=== PATIENT | female | born 1970 | race Caucasian/White ===

== ENCOUNTER 2020-05-07 02:16 | Outpatient (CLI) | payer OTHER, SELFPAY ==
[2020-05-07 17:02] LABS: SARS-CoV-2 RNA PCR Negative
== END 2020-05-07 02:17 | disposition home or self-care (01) ==
LOC: ANHCOVIDDT 02:16
PROVIDERS: PCP Internal Medicine; Visit Provider Internal Medicine Gastroenterology
DX: Z01.812 Encounter for preprocedural laboratory examination (principal); Z20.828 Contact with and (suspected) exposure to other viral communicable diseases
CPT/HCPCS: 87635; C9803; U0003

== ENCOUNTER 2020-05-09 00:18 | Day surgery (SDC) | payer OTHER, SELFPAY ==
[2020-05-01 13:22] VITALS: BMI 23.4
--- NOTE | 2020-05-09 09:43 | P.PNAN_ITS ---
Anes - Initial Pre Proc Eval Procedure: Operation Date: 05/09/20 10:00 Proposed Procedures p Esophagogastroduodenoscopy - Pedro Nagel MD Date/Time: 05/09/20 09:43 Surgeon: Pedro Nagel MD Pre Op Diagnosis: GERD Patient Data Age: 49 Gender: F Height: 1.75 m Weight: 72 kg Allergies Allergy/AdvReac Type Severity Reaction Status Date / Time No Known Allergies Allergy Mild Unverified 05/31/09 08:31 BEE STINGS Allergy Unknown Hives Uncoded 05/01/20 13:38 / PAIN PILL? AdvReac Unknown ITCHING Uncoded 05/01/20 13:38 Home Medications Medication Instructions Recorded Confirmed Type Chlorophyll Veg 1 cap PO DAILY 05/01/20 05/01/20 History Co Q-10 120 mg PO DAILY 05/01/20 05/01/20 History L-Tyrosine 500 mg PO DAILY 05/01/20 05/01/20 History Living Calcium Adv. 1 cap PO DAILY 05/01/20 05/01/20 History ascorbic acid (vitamin C) [Vitamin 500 mg PO DAILY 05/01/20 05/01/20 History C] biotin 10,000 mcg PO DAILY 05/01/20 05/01/20 History cholecalciferol (vitamin D3) 2,000 mcg PO DAILY 05/01/20 05/01/20 History [Vitamin D3] clonazepam 0.5 mg PO DAILY PRN 05/01/20 05/09/20 History cyanocobalamin (vitamin B-12) 1,000 mcg PO DAILY 05/01/20 05/01/20 History [Vitamin B-12] duloxetine 60 mg PO DAILY 05/01/20 05/01/20 History elderberry fruit-honey 1 cap PO DAILY 05/01/20 05/01/20 History loratadine [Claritin] 20 mg PO DAILY 05/01/20 05/01/20 History magnesium oxide 500 mg PO DAILY 05/01/20 05/01/20 History vdalvmmy-aru-NZ-lycopen-lutein 1 tablet PO DAILY 05/01/20 05/01/20 History [Biocel (with Lutein)] omeprazole 20 mg PO BID 05/01/20 05/01/20 History Patient hx anesthesia problems: none Family hx anesthesia problems: none PMFSH Past Medical History Medical History (Updated 05/09/20 @ 09:44 by Kofi Mota MD) Anxiety Gastroesophageal reflux disease Hemorrhoids Social History Social History Smoking status: Never smoker Alcohol intake: current Substance use: never Substance use type: does not use Spiritual care concerns: No Anes - Eval Final PreProcedure Day of Procedure 05/09/20 09:43 Patient weight: overweight Heart: regular rate and rhythm Lungs: clear to auscultation and normal air movement Airway: Mallampati scale class II Neurological: alert and oriented Last oral intake: >/= 8 hours ASA classification: II Emergent: no Anesthetic plan: proceed Anesthesia type and monitoring: general GIVS Informed Consent: The patient's anesthetic plan and its attendant risks and benefits were discussed with the patient/family/POA. Questions were solicited a nd answers provided to the satisfaction of the patient/family/POA.
[2020-05-09 10:05] VITALS: BP 141/84; PULSE 90; RESP 17; TEMP 36.8; O2SAT 100
[2020-05-09] MEDS: LACTATED RINGERS 1,000 ML 150 ML IV CONT (10:17)
--- NOTE | 2020-05-09 11:30 | PM.HPGS ---
History of Present Illness History of Present Illness Consent: Risks, benefits, and alternatives have been discussed and questions answered. Patient agrees to proceed with procedure. Chief complaint: GERD Narrative: Arlette Simmons is a 49 year old W female referred for gastroscopy for evaluation of constant nausea history of indigestion heartburn no dysphagia or odynophagia. No hematemesis. No melena. No prior history of peptic ulcer disease. Patient was seen for this 3 years ago underwent a EGD performed by myself. This revealed a small hiatal hernia mild distal esophagitis. BEL test was negative. She has been on PPI most recently Prevacid taking it twice a day without significant improvement. No new medications. Patient did have a colonoscopy 10 years ago which was normal. I did recommend she schedule another colonoscopy. He had PMFSH Past Medical History Medical History Anxiety Gastroesophageal reflux disease Hemorrhoids Social History Social History Smoking status: Never smoker Alcohol intake: current Substance use: never Substance use type: does not use Spiritual care concerns: No Meds Home Medications and Allergies Home Medications Medication Instructions Recorded Confirmed Type Chlorophyll Veg 1 cap PO DAILY 05/01/20 05/01/20 History Co Q-10 120 mg PO DAILY 05/01/20 05/01/20 History L-Tyrosine 500 mg PO DAILY 05/01/20 05/01/20 History Living Calcium Adv. 1 cap PO DAILY 05/01/20 05/01/20 History ascorbic acid (vitamin C) [Vitamin 500 mg PO DAILY 05/01/20 05/01/20 History C] biotin 10,000 mcg PO DAILY 05/01/20 05/01/20 History cholecalciferol (vitamin D3) 2,000 mcg PO DAILY 05/01/20 05/01/20 History [Vitamin D3] clonazepam 0.5 mg PO DAILY PRN 05/01/20 05/09/20 History cyanocobalamin (vitamin B-12) 1,000 mcg PO DAILY 05/01/20 05/01/20 History [Vitamin B-12] duloxetine 60 mg PO DAILY 05/01/20 05/01/20 History elderberry fruit-honey 1 cap PO DAILY 05/01/20 05/01/20 History loratadine [Claritin] 20 mg PO DAILY 05/01/20 05/01/20 History magnesium oxide 500 mg PO DAILY 05/01/20 05/01/20 History tnvjitnv-jbn-BV-lycopen-lutein 1 tablet PO DAILY 05/01/20 05/01/20 History [Biocel (with Lutein)] omeprazole 20 mg PO BID 05/01/20 05/01/20 History Allergies Allergy/AdvReac Type Severity Reaction Status Date / Time No Known Allergies Allergy Mild Unverified 05/31/09 08:31 BEE STINGS Allergy Unknown Hives Uncoded 05/01/20 13:38 / PAIN PILL? AdvReac Unknown ITCHING Uncoded 05/01/20 13:38 Vital Signs Vital Signs - 24 hr 05/09/20 10:05 Temperature 36.8 C Pulse Rate 90 Respiratory Rate 17 Blood Pressure 141/84 H Pulse Oximetry 100 Exam Const: Orientation/consciousness: patient oriented x3 Resp: Auscultation: clear to auscultation bilaterally Cardio: Rate: regular rate Rhythm: regular rhythm Heart sounds: no murmurs GI: GI Palp: Yes Soft to palpation, No Tenderness to palpation present (GI), Yes No hepatosplenomegaly present and No Palpable mass present Auscultation: normal bowel sounds Neuro: General: patient oriented x3 and no focal motor deficits Extrem: General: no pedal edema Assessment and Plan Additional Plan gastroscopy for evaluation persistent nausea/dyspepsia history of GERD
[2020-05-09] MEDS: SIMETHICONE ORAL SUSPENSION 20 MG/0.3 ML 30 ML BOTTLE 0.6 ML IRRIGATION (11:59)
[2020-05-09 12:10] VITALS: BP 114/77; PULSE 72; RESP 21; O2SAT 99
[2020-05-09 12:20] VITALS: BP 111/98; PULSE 71; RESP 18; O2SAT 100
[2020-05-09 12:30] VITALS: BP 117/79; PULSE 70; RESP 16; O2SAT 100
== END 2020-05-09 12:42 | disposition home or self-care (01) ==
PROVIDERS: PCP Internal Medicine; Visit Provider Internal Medicine Gastroenterology
PROC: 0DJ08ZZ Inspection of Upper Intestinal Tract, Via Natural or Artificial Opening Endoscopic (ICD-10-PCS; CPT 43235; principal; 2020-05-09 10:00)
DX: K29.50 Unspecified chronic gastritis without bleeding (principal); K31.7 Polyp of stomach and duodenum; K21.0 Gastro-esophageal reflux disease with esophagitis; F41.9 Anxiety disorder, unspecified
CPT/HCPCS: 43239; 87081; 87635; 88305; C9803; J7120; U0003

== ENCOUNTER 2021-02-27 16:07 | Outpatient (CLI) | payer OTHER, SELFPAY ==
--- NOTE | ~2021-02-27 | MM_ITS ---
EXAMINATION: MM screening [facility] w [facility] HISTORY: Screening TECHNIQUE: Craniocaudal and mediolateral oblique 3-D tomosynthesis images were obtained and synthetic 2-D images were generated. CAD analysis was submitted and interpreted. COMPARISON: Comparison to multiple prior studies sequentially, with oldest reviewed study dated 12/27. BREAST PARENCHYMAL COMPOSITION: Breast composed of scattered areas of fibroglandular density FINDINGS: There is no evidence of suspicious mass, calcification, or architectural distortion to sugg est malignancy in either breast. There has been no suspicious interval change. IMPRESSION: 1. No mammographic evidence of malignancy. 2. Recommend routine screening mammography in one year. BI-RADS Category 1: Negative Reviewed, dictated and finalized at location A.
== END 2021-02-27 16:08 | disposition home or self-care (01) ==
PROVIDERS: PCP Internal Medicine
DX: Z12.31 Encounter for screening mammogram for malignant neoplasm of breast (principal)
CPT/HCPCS: 77063; 77067

== ENCOUNTER 2025-07-18 08:37 | Outpatient (CLI) | payer OTHER, SELFPAY ==
--- NOTE | ~2025-07-18 | MM_ITS ---
EXAMINATION: MM screening [facility] w [facility] HISTORY: Screening TECHNIQUE: Craniocaudal and mediolateral oblique 3-D tomosynthesis images were obtained and synthetic 2-D images were generated. CAD analysis was submitted and interpreted. COMPARISON: Comparison to multiple prior studies sequentially, with oldest reviewed study dated , 05/18/2016 BREAST PARENCHYMAL COMPOSITION: Not Dense: There are scattered areas of fibroglandular density. FINDINGS: There is no evidence of suspicious mass, calcification, or architectural distortion to suggest malignancy in either breast. IMPRESSION: 1. No mammographic evidence of malignancy. 2. Recommend routine screening mammography in one year. BI-RADS Category 1: Negative Reviewed, dictated and finalized at location B. [employer]
== END 2025-07-18 08:38 | disposition home or self-care (01) ==
LOC: ANHFOHIMG 08:42
PROVIDERS: PCP Family Medicine; Visit Provider Obstetrics & Gynecology
DX: Z12.31 Encounter for screening mammogram for malignant neoplasm of breast (principal)
CPT/HCPCS: 77063; 77067